=== PATIENT | female | born 1945 | race Caucasian/White ===

== ENCOUNTER 2021-06-28 18:01 | Observation (INO) | payer MEDICARE ==
[~2021-06-28] VITALS: Ht 152.4 cm; Wt 69.4 kg
[2021-06-28 18:01] VITALS: BP 159/86
--- NOTE | 2021-06-28 18:01 | NUR ---
ARRIVAL PATIENT ARRIVED TO [facility] AMBULATORY WITH FAMILY, C/O SORE THROAT AND COUGH FOR THE PAST 7 DAYS, JUST FINISHED A ZPACK THAT WAS GIVEN BUT COUGH CONTINUES, DECIDED TO COME TO THE ED FOR EVAL, VITAL SIGNS TAKEN AND DOCTOR NOTIFIED OF PATIENT'S ARRIVAL.
[2021-06-28] MEDS ORDERED: DUO 0.5-3(2.5) MG/3 ML IH STA (18:28)
[2021-06-28] MEDS ORDERED: SOLU-MEDROL IV STA (18:28)
[2021-06-28] MEDS ORDERED: SOLU-MEDROL ONE (18:42)
[2021-06-28] MEDS ORDERED: DUO 0.5-3(2.5) MG/3 ML IH ONE (18:42)
--- NOTE | 2021-06-28 19:06 | DIREP ---
PROCEDURE:CHEST 1 VIEW COMPARISON:None. INDICATIONS:cough FINDINGS: LUNGS/PLEURA:Increased interstitial markings are seen throughout both lungs. Patchy ground-glass opacities are seen in the left mid lung field and left base. No pleural effusion is seen. VASCULATURE:Normal. Unremarkable pulmonary vasculature. CARDIAC:Normal. No cardiac silhouette abnormality or cardiomegaly. MEDIASTINUM:Normal. No visible mass or adenopathy. BONES:Normal. No fracture or visible bony lesion. OTHER:Negative. CONCLUSION:There are increased interstitial markings throughout both lungs with patchy ground-glass opacities in the left mid lung field and left base. Dictated by: Ousmane Schneider M.D. on 06/28/2021 at 07:03 PM
[2021-06-28 19:11] LABS: BASOPHIL % 0.2 % (0.0-0.2); EOSINOPHIL # 0.4 10^3/uL (0.0-0.2); EOSINOPHIL % 2.6 % (0.0-5.0); LYMPHOCYTES # 4.45 10^3/uL1 (1.0-4.8); LYMPHOCYTES % 31.1 % (24.0-44.0); MEAN CORP HGB 32.2 pg (26-34); MONOCYTES # 0.8 10^3/uL (0.3-0.8); MONOCYTES % 5.6 % (5.0-12.0); NEUTROPHIL # 8.6 10^3/uL (1.8-7.7); PLATELET COUNT 177 10^3/uL (150-400); RED CELL DISTRIBUTION WIDTH 12.4 % (11.5-14.5)
--- NOTE | 2021-06-28 19:15 | ER.PDOC ---
General Chief Complaint: Cough/Congestion Stated Complaint: SOB,COUGH,FEVER TRAVEL OUT OF US: No Time seen by MD: 18:40 Source: patient, family Exam Limitations: no limitations History of Present Illness Initial Comments 76-year-old female comes here with persistent cough for 1 week. Diagnosed with pneumonia as outpatient and started on Z-Ricki. She is got history of pulmonary fibrosis. She is taking multiple medication to suppress her immune system. The patient indicated having some purulent secretions described as thick and yellow. The also with pneumonia as well. No fever and no chills currently. Denies any other complaint. Allergies: Coded Allergies: Cephalosporins (Verified Allergy, Unknown, 06/28/21) acetaminophen (Verified Allergy, Unknown, 06/28/21) ciprofloxacin (Verified Allergy, Unknown, 06/28/21) frovatriptan (Verified Allergy, Unknown, 06/28/21) iodine (Verified Allergy, Unknown, 06/28/21) oxycodone (Verified Allergy, Unknown, 06/28/21) tramadol (Verified Allergy, Unknown, 06/28/21) Past Medical History Medical History: GERD, high cholesterol, hypertension, other (Pulmonary fibrosis) Surgical History: appendectomy, cholecystectomy, hysterectomy, knee, tonsillectomy, other LMP (females 10-50): N/A Not applicalbe Family History Significant Family History: no pertinent family hx Social History Smoking: non-smoker Alcohol Use: none Drug Use: none Reviewed Nursing Reviewed: Vital Signs, Abn. Noted, Nursing Assessment Review of Systems Constitutional: denies no symptoms reported, denies see HPI, denies chills, denies diaphoresis, denies fever, denies malaise, denies weakness, denies other EENTM: denies no symptoms reported, denies see HPI, denies eye pain, denies blurred vision, denies tearing, denies double vision, denies ear pain, denies ear discharge, denies nose pain, denies nose congestion, denies throat pain, denies throat swelling, denies mouth pain, denies mouth swelling, denies other Respiratory: denies no symptoms reported, denies see HPI; cough; denies orthopnea; shortness of breath; denies stridor, denies wheezing, denies other Cardiovascular: denies no symptoms reported, denies see HPI, denies chest pain, denies edema, denies palpitations, denies syncope, denies other Gastrointestinal: denies no symptoms reported, denies see HPI, denies abdominal pain, denies constipation, denies diarrhea, denies nausea, denies vomiting, denies other Genitourinary: denies no symptoms reported, denies see HPI, denies discharge, denies dysuria, denies frequency, denies hematuria, denies pain, denies other Musculoskeletal: denies no symptoms reported, denies see HPI, denies back pain, denies gout, denies joint pain, denies joint swelling, denies muscle pain, denies muscle stiffness, denies neck pain, denies other Skin: denies no symptoms reported, denies see HPI, denies change in color, denies change in hair/nails, denies dryness, denies lesions, denies lumps, denies rash, denies other Psychiatric/Neurological: denies no symptoms reported, denies see HPI, denies anxiety, denies depressed, denies emotional problems, denies headache, denies numbness, denies paresthesia, denies pre-existing deficit, denies seizure, denies tingling, denies tremors, denies weakness, denies other Hematologic/Lymphatic: denies no symptoms reported, denies see HPI, denies anemia, denies blood clots, denies easy bleeding, denies easy bruising, denies swollen glands, denies other Immunological/Allergic: denies no symptoms reported, denies see HPI, denies food allergy, denies grass allergy, denies mold allergy, denies pollen allergy, denies HIV/AIDS, denies transplant All Other Systems: Reviewed and Negative Physical Exam General Appearance: No Apparent Distress, WD/WN EENT: eyes nml inspection, nml ENT inspection Neck: Non-Tender, Full Range of Motion, Supple, Normal Inspection Respiratory: chest non-tender, decreased breath sounds, rhonchi, wheezing CVS: reg rate & rhythm, no murmur, no gallop, pulses nml, nml capillary refill Gastrointestinal: Normal Bowel Sounds, No Organomegaly, No Pulsatile Mass, Non Tender, Soft Back: Normal Inspection, No CVA Tenderness Extremities: Normal Range of Motion, Non-Tender, Normal Inspection, No Pedal Edema 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 as Tested, No Motor/Sensory Deficits, Alert, Normal Mood/Affect, Oriented x 3 Skin: Normal Color, Warm/Dry Lymphatic: No Adenopathy Results/Orders Results/Orders Orders - JEFFERY ANN MD Cbc With Auto Diff (06/28/21 18:28) Comprehensive Metabolic Panel (06/28/21 18:28) Probnp B-Type Lumber Sorter (06/28/21 18:28) Xr Chest 1v (06/28/21 18:28) Methylprednisolone Sod Succ (Solu-Medrol (06/28/21 18:28) Ipratropium/Albuterol Sulfate (Duo 0.5-3 (06/28/21 18:28) Methylprednisolone Sod Succ (Solu-Medrol (06/28/21 18:42) Ipratropium/Albuterol Sulfate (Duo 0.5-3 (06/28/21 18:42) Ct Chest Wo Iv Contrast (06/28/21 19:15) Vital Signs Date Time Temp Pulse Resp B/P (MAP) Pulse Ox O2 Delivery O2 Flow Rate FiO2 06/28/21 18:01 98.4 94 20 06/28/21 18:01 98.4 94 20 93 06/28/21 18:01 98.4 94 20 159/86 (110) 93 Room Air* 0 21 Administered Medications Medications (Trade) Dose Ordered Sig/Kelly Route PRN Reason Start Time Stop Time Status Last Admin Dose Admin Albuterol/ Ipratropium (Duo 0.5-3(2.5) Mg/3 ml) 3 ml STAT STAT IH 06/28/21 18:28 06/28/21 18:38 DC 06/28/21 18:48 3 ML Methylprednisolone Sodium Succinate (Solu-Medrol) 125 mg STAT STAT IV 06/28/21 18:28 06/28/21 18:38 DC 06/28/21 18:48 125 MG Laboratory Tests Test 06/28/21 19:00 White Blood Count 14.3 10^3/uL (4.5-11.0) H Red Blood Count 4.41 10^6/uL (4.00-5.20) Hemoglobin 14.2 g/dL (12.0-15.0) Hematocrit 40.6 % (36.0-46.0) Mean Corpuscular Volume 92.1 fL (78-100) Mean Corpuscular Hemoglobin 32.2 pg (26-34) Mean Corpuscular Hemoglobin Concent 35.0 g/dL (33-36.5) Red Cell Distribution Width 12.4 % (11.5-14.5) Platelet Count 177 10^3/uL (150-400) Mean Platelet Volume 10.3 fL (7.8-11.0) Neutrophils (%) (Auto) 60.0 % (41.0-85.0) Lymphocytes (%) (Auto) 31.1 % (24.0-44.0) Monocytes (%) (Auto) 5.6 % (5.0-12.0) Neutrophils # (Auto) 8.6 10^3/uL (1.8-7.7) H Lymphocytes # (Auto) 4.45 10^3/uL1 (1.0-4.8) Monocytes # (Auto) 0.8 10^3/uL (0.3-0.8) Absolute Immature Granulocyte (auto 0.07 10^3 u/L (0-2) Absolute Eosinophils (auto) 0.4 10^3/uL (0.0-0.2) H Immature Granulocytes % 0.50 % (0.00-0.50) Eosinophils % 2.6 % (0.0-5.0) Basophils % 0.2 % (0.0-0.2) Basophils # 0.0 10^3/uL (0.0-0.1) Sodium Level 136 mmol/L (132-145) Potassium Level 3.3 mmol/L (3.6-5.2) L Chloride Level 102.0 mmol/L (96-109) Carbon Dioxide Level 26.0 mmol/L (20.0-32) Anion Gap 11.3 Blood Urea Nitrogen 8 mg/dL (7-18) Creatinine 0.90 mg/dL (0.59-1.40) Estimated GFR () 74.1 (>/=60) Est GFR (CKD-EPI)(Non-Afr [place] Korean) 61.2 (>/=60) BUN/Creatinine Ratio 8.0 Glucose Level 144 mg/dL (70-110) H Calcium Level 9.1 mg/dL (8.4-10.5) Total Bilirubin 0.5 mg/dL (0.2-1.0) Aspartate Amino Transferase (AST) 37 U/L (0-35) H Alanine Aminotransferase (ALT) 35 U/L (12-78) Alkaline Phosphatase 90 U/L (50-136) Pro-B-Type Natriuretic Peptide 426 pg/mL (0-125) H Total Protein 6.8 g/dL (6.4-8.2) Albumin 3.7 g/dL (3.4-5.0) Globulin 3.1 Albumin/Globulin Ratio 1.193 Progress Progress Patient came here with shortness of breath and fever and cough. The chest x-ray and CT of the chest shows bilateral pneumonia. Obviously not responding to p.o. antibiotics. Patient will need to be admitted for IV antibiotics. EKG/XRAY/CT/US XRAY Comments: Chest x-ray shows bilateral pneumonia CT Comments: CT of the chest shows bilateral pneumonia ER DEPART Departure Time of Disposition: 21:10 Disposition: 09 ADMITTED INPATIENT Impression: Primary Impression: Dyspnea Additional Impressions: Pneumonia Bronchiectasis Condition: Stable Referrals: PCP,UNKNOWN (PCP) PRIMARY CARE PROVIDER Duration or Time Spent with Pa: 40 minutes Problem Qualifiers JEFFERY ANN MD June 28, 2021 19:15
--- NOTE | 2021-06-28 19:48 | DIREP ---
PROCEDURE:CT CHEST W/O COMPARISON:None. INDICATIONS:sob, persistent pna TECHNIQUE:Helical sections through the chest were performed from the lung apices through the diaphragms without IV contrast. Sagittal and coronal reconstructions are obtained from source images. FINDINGS: LUNGS:There is peripherally predominant reticular interstitial pattern of opacity throughout the lungs few scattered pulmonary blebs are seen. Borderline bronchiectasis at the lung bases. More confluent regions of ground-glass opacification is seen with right greater than left upper lobe. Patchy opacification within the superior segment of the left lower lobe. Scattered 2 and 3 mm pulmonary nodules. More dominant right upper lobe pulmonary nodule measuring 6 mm on image 23 series 2. PLEURA:No pleural effusion. CARDIAC:Heart is normal in size. No pericardial effusion. Coronary artery calcification. MEDIASTINUM:Thyroid gland is normal. Likely reactive mediastinal and hilar lymphadenopathy. Preserved central fatty hilum is seen with enlarged lymph nodes. Small hiatal hernia. AORTA:Calcification of thoracic aorta. No aneurysmal dilation. CHEST WALL:No suspicious chest wall lesions. No adenopathy by size criteria. LIMITED ABDOMEN:Calcification of the abdominal aorta. Cholecystectomy change. No acute upper abdominal pathology. BONES:Degenerative change of the spine. OTHER:Negative. CONCLUSION: Peripherally predominant reticular interstitial pattern of opacity may be on the basis of early fibrotic or interstitial lung disease change. Borderline bronchiectasis is noted at the lung bases. Patchy opacity within the superior segment of the left lower lobe may be on the basis of atelectasis or developing consolidation. Ground-glass opacification within the left greater than right upper lobe may be on the basis of an atypical infectious or inflammatory process or edema. 6 mm right upper lobe pulmonary nodule. Recommend follow-up low-dose noncontrast chest CT in 1 year. Additional findings as above. Dictated by: Carlos Castillo MD on 06/28/2021 at 07:43 PM
[2021-06-28] MEDS ORDERED: LOVENOX SQ SCH (22:00)
[2021-06-28 22:36] VITALS: BP 144/66
--- NOTE | 2021-06-28 22:44 | PRM.CONS ---
Subjective Symptoms, Observation: 76-year-old female with history of pulmonary fibrosis, HTN, HLD, and GERD presented to the ED with worsening cough, fever, and chills. She states that she was diagnosed with pneumonia a week ago and was prescribed a Z-Ricki (has completed it); however she is not getting any better and is becoming more short of breath and cough now productive of abrams/yellow sputum. She is immunosuppressed. Vitals stable in the ED. Breathing 93% on room air. WBC 14.3, potassium 3.3, glucose 144, AST 37, BNP 426. CXR: Increased interstitial markings throughout both lungs with patchy adonay undglass opacities in left mid lung field and left base. CT chest: Groundglass opacification within the left upper lobe, patchy opacity in superior segment of left lower lobe, peripherally predominant reticular interstitial pattern of opacity, borderline bronchiectasis bilateral lung bases, 6 mm right upper lobe pulmonary nodule with recommended follow-up low-dose chest CT in 1 year. She received 1 DuoNeb and Solu-Medrol 125 mg IV x1 in ED. Patient has extensive list of allergies including cephalosporins and ciprofloxacin, ED doctor did not feel comfortable giving antibiotic while in ED. Patient admitted for community-acquired pneumonia in immunocompromised host after failing outpatient therapy with p.o. azithromycin. Objective Exam,Results,Procedures Laboratory Tests Test 06/28/21 19:00 White Blood Count 14.3 10^3/uL Red Blood Count 4.41 10^6/uL Hemoglobin 14.2 g/dL Hematocrit 40.6 % Mean Corpuscular Volume 92.1 fL Mean Corpuscular Hemoglobin 32.2 pg Mean Corpuscular Hemoglobin Concent 35.0 g/dL Red Cell Distribution Width 12.4 % Platelet Count 177 10^3/uL Mean Platelet Volume 10.3 fL Neutrophils (%) (Auto) 60.0 % Lymphocytes (%) (Auto) 31.1 % Monocytes (%) (Auto) 5.6 % Neutrophils # (Auto) 8.6 10^3/uL Lymphocytes # (Auto) 4.45 10^3/uL1 Monocytes # (Auto) 0.8 10^3/uL Absolute Immature Granulocyte (auto 0.07 10^3 u/L Absolute Eosinophils (auto) 0.4 10^3/uL Immature Granulocytes % 0.50 % Eosinophils % 2.6 % Basophils % 0.2 % Basophils # 0.0 10^3/uL Sodium Level 136 mmol/L Potassium Level 3.3 mmol/L Chloride Level 102.0 mmol/L Carbon Dioxide Level 26.0 mmol/L Anion Gap 11.3 Blood Urea Nitrogen 8 mg/dL Creatinine 0.90 mg/dL Estimated GFR () 74.1 Est GFR (CKD-EPI)(Non-Afr Guyanese) 61.2 BUN/Creatinine Ratio 8.0 Glucose Level 144 mg/dL Calcium Level 9.1 mg/dL Total Bilirubin 0.5 mg/dL Aspartate Amino Transf (AST/SGOT) 37 U/L Alanine Aminotransferase (ALT/SGPT) 35 U/L Alkaline Phosphatase 90 U/L Pro-B-Type Natriuretic Peptide 426 pg/mL Total Protein 6.8 g/dL Albumin 3.7 g/dL Globulin 3.1 Albumin/Globulin Ratio 1.[address] chest w/o contrast: Peripherally predominant reticular interstitial pattern of opacity may be on the basis of early fibrotic or interstitial lung disease change. Borderline bronchiectasis is noted at the lung bases. Patchy opacity within the superior segment of the left lower lobe may be on the basis of atelectasis or developing consolidation. Ground-glass opacification within the left greater than right upper lobe may be on the basis of an atypical infectious or inflammatory process or edema. 6 mm right upper lobe pulmonary nodule. Recommend follow-up low-dose noncontrast chest CT in 1 year. CXR: There are increased interstitial markings throughout both lungs with patchy ground-glass opacities in the left mid lung field and left base. Assessment & Plan Problems/DX: (1) Sepsis (2) Pneumonia (3) Dyspnea (4) Pulmonary fibrosis (5) Bronchiectasis (6) Hypokalemia Provider Note: 76-year-old female with history of pulmonary fibrosis presenting to the ED with 1 week history of worsening cough, shortness of breath, fever, and chills. Diagnosed with CAP 1 week ago and completed a Z-Ircki without improvement in symptoms. also diagnosed with pneumonia but he is improving. Patient on immunosuppressive medications due to pulmonary fibrosis. 1. Sepsis HR 87-103, WBC 14.3, source of infection: Pneumonia. Lactic acid not drawn in ED. Blood cultures not drawn in ED. IV fluids Treating pneumonia as below Repeat labs in a.m. 2. Pneumonia Patient failed outpatient p.o. azithromycin. See imaging results above. Has skin sloughing allergy to cephalosporins and severe rash to f luoroquinolones. Patient denies allergy to penicillins. ED physician was unsure which antibiotic to try so she did not receive any antibiotics while in the ED. Received Solu-Medrol 125 mg IV x1 in ED. Started Zosyn and doxycycline Supplemental O2 as needed, wean as tolerated Repeat labs in a.m. 3. Dyspnea Chronic but acutely worse with concurrent pneumonia. Shabnam scheduled Treating pneumonia as above 4. Pulmonary fibrosis Patient on immunosuppressive medications. Symptoms worse with concurrent pneumonia. Treating pneumonia as above Holding immunosuppressive medications at this time 5. Bronchiectasis Chronic but acutely worse with concurrent pneumonia. Treating pneumonia as above 6. Hypokalemia Mild, K3.3. P.o. replacement Repeat labs in a.m. VTE VTE Risk Score VTE Risk: Score 0-1 = Low Risk (Aggressive mobilization; early ambulation; no VTE prophylaxis required) Score 2: Moderate Risk (Intermittent/Pneumatic Compression Device OR Lovenox/Heparin/Coumadin) Score 3-4: High Risk (Intermittent/Pneumatic Compression Device AND Lovenox/Heparin/Coumadin) Score > or =5: Highest Risk (Intermittent/Pneumatic Compression Device AND Lovenox/Heparin/Coumadin) DAVIDSON HUDDLESTON MD June 28, 2021 22:44
--- NOTE | 2021-06-29 00:05 | NUR ---
MED/SURG REPORT GIVEN TO JOSH KING. TRANSPORTED TO MED-SURG VIA WHEELCHAIR BY RILEY KEBEDE. ALERT AND ORIENTED X3. O2 SAT 94% ON ROOM AIR.
[2021-06-29] MEDS: LACTATED RINGERS 1,000 ML IV SCH ×2 (00:26→09:30)
[2021-06-29 00:44] VITALS: BP 146/90
[2021-06-29] MEDS ORDERED: ZOSYN 3.375 GM 3.375 GM in NS 100ML 100 ML IV SCH ×2 (01:30→10:00)
[2021-06-29] MEDS ORDERED: BENADRYL IV PRN (02:00)
[2021-06-29] MEDS: VIBRAMYCIN PO SCH ×2 (02:11→09:30)
[2021-06-29] MEDS ORDERED: NS 100ML 100 ML IV ONE (02:14)
[2021-06-29] MEDS: DUO 0.5-3(2.5) MG/3 ML IH SCH ×3 (02:19→08:54)
[2021-06-29] MEDS ORDERED: KCL 20MEQ/100ML 100 ML IV SCH (03:00)
[2021-06-29] MEDS ORDERED: NS 250ML 250 ML ONE (04:03)
[2021-06-29] MEDS ORDERED: KLOR-CON 10 PO ONE (04:24)
[2021-06-29] MEDS ORDERED: KLOR-CON 10 PO SCH (04:30)
[2021-06-29 05:06] LABS: BASOPHIL % 0.1 % (0.0-0.2); LYMPHOCYTES # 1.37 10^3/uL1 (1.0-4.8); LYMPHOCYTES % 9.8 % (24.0-44.0); MEAN CORP HGB 32.1 pg (26-34); MONOCYTES # 0.1 10^3/uL (0.3-0.8); MONOCYTES % 0.6 % (5.0-12.0); NEUTROPHIL # 12.5 10^3/uL (1.8-7.7); NEUTROPHILS % 89.5 % (41.0-85.0); PLATELET COUNT 184 10^3/uL (150-400); RED CELL DISTRIBUTION WIDTH 12.5 % (11.5-14.5)
[2021-06-29 05:15] VITALS: BP 127/75
[2021-06-29 05:17] LABS: CARBON DIOXIDE 21.6 mmol/L (20.0-32)
[2021-06-29 07:16] VITALS: BP 128/67
--- NOTE | 2021-06-29 09:23 | NUR ---
DISCHARGE PLAN - BACK TO [place] [email or web address] TO VISIT WITH PATIENT ABOUT DISCHARGE PLANS/NEEDS/GOALS. PATIENT REPORTS THAT SHE LIVES IN [place] WITH HER SPOUSE AND IND WITH ALL ADL AND SHE CAME TO [place] TO VISIT WITH HER GRANDDAUGHTER AND GRANDKIDS. PATIENT STATES HER AND HER SPOUSE ARE UNABLE TO DRIVE THAT FAR AND SO THEY TOOK A TRAIN TO [place] AND SHE RENTED A CAR. HER WAS UNABLE TO COME BECAUSE HE CAME DOWN WITH PNEUMONIA AND SHE WAS SUPPOSE TO BE GOING BACK HOME NOW. REPORTS HER GRANDDAUGHTER IS MAKING ALL OF THE ARRANGEMENTS TO CHANGE WHEN SHE RETURNS HER RENTAL CAR AND TRAIN BACK TO [place]. PATIENT REPORTS ONLY DME IS HER NEBULIZER AND SHE BROUGHT IT WITH HER. DENIES ANY NEED FOR ANY OTHER SERVICES OR MEDICAL EQUIPMENT. PATIENT CURRENTLY ON ROOM AIR. PATIENT REPORTS THAT SHE SEE'S DR OMKAR HSU IN [place] FOR PCP. PATIENT PLANS TO DISCHARGE BACK TO HER GRANDDAUGHTER'S HOUSE UNTIL HER TRANSPORTATION HAS BEEN SCHEDULED TO RETURN TO [place] WITH HER SPOUSE. Addendum: 06/29/21 at 1113 by Rain Arevalo RN,Case Managemen RN PER ID MEETING - DR MONAHAN REQUEST CM FAX PATIENT'S CLINICALS TO PATIENT'S PCP IN [place]. CM CONTACTED PATIENT'S PCP DR OMKAR HSU AND CONFIRMED PATIENT SEE'S DR HSU. PATIENT'S NEXT APPT WITH DR HSU IS ALREADY SCHEDULED FOR July@9AM. CM UPDATED PATIENT'S FOLLOW UP APPT IN PATIENT'S VISIT REPORT AND NOTIFIED TIFFANY DAVILA RN - CHARGE NURSE OF APPT TIME. CM FAXED COMPLETE CLINICAL RECORDS DR DR OMKAR HSU@[phone]. FAX CONFIRMATION CONFIRMED COMPLETE.
[2021-06-29] MEDS ORDERED: AMOX1TAB60 PO (10:46)
[2021-06-29] MEDS ORDERED: DOXY100T PO (10:46)
--- NOTE | 2021-06-29 10:56 | PRM.DC ---
Discharge Summary Date of Discharge: June 29, 2021 Time of Request to Discharge: 10:45 Hospital Course Please see same day H and P for observation patients. Patient History: Patient reports no known family medical history. Scheduled Amoxicillin/Potassium Clav (Augmentin 500-125 Tablet), 1 TAB PO Q8HR Doxycycline Hyclate (Doxycycline Hyclate), 100 MG PO BID Sepsis Evaluation @ Discharge 06/29/21 07:38 Course Sepsis Screening Results: Posi: NEGATIVE Sepsis Qualifier/Stage: NO DEFINITE RISK Duration or Total Time Spent w: 40 minutes Vitals & review Data Vital Sign - Last 24 Hours 06/28/21 06/28/21 06/28/21 06/28/21 18:01 18:01 18:01 22:36 Temp 98.4 98.4 98.4 98.4 Pulse 94 94 94 87 Resp 20 20 20 20 B/P (MAP) 159/86 (110) 144/66 (92) Pulse Ox 93 93 93 O2 Delivery Room Air* Room Air* O2 Flow Rate 0 0 FiO2 06/29/21 06/29/21 06/29/21 06/29/21 00:42 00:44 02:20 02:21 Temp 98.2 Pulse 103 98 98 Resp 20 20 20 B/P (MAP) 146/90 (108) Pulse Ox 94 97 97 O2 Delivery Room Air Room Air* Room Air* Room Air* O2 Flow Rate 0.00 0 0 0 FiO2 06/29/21 06/29/21 06/29/21 06/29/21 05:09 05:10 05:15 07:16 Temp 98.5 98.3 Pulse 97 9 79 104 Resp 20 20 18 18 B/P (MAP) 127/75 (92) 128/67 (87) Pulse Ox 95 95 94 92 O2 Delivery Room Air* Room Air* Room Air* Room Air* O2 Flow Rate 0 0 0 0 FiO2 06/29/21 06/29/21 06/29/21 06/29/21 08:56 08:57 08:58 10:20 Pulse 112 108 Resp 20 20 20 Pulse Ox 92 92 O2 Delivery Room Air* Room Air* Room Air O2 Flow Rate 0 0 FiO2 21 Intake and Output 06/29/21 07:00 Intake Total 100 ml Output Total 350 ml Balance -250 ml Laboratory Tests Test 06/28/21 19:00 06/28/21 22:50 06/29/21 04:08 White Blood Count 14.3 10^3/uL 13.9 10^3/uL Red Blood Count 4.41 10^6/uL 4.27 10^6/uL Hemoglobin 14.2 g/dL 13.7 g/dL Hematocrit 40.6 % 39.3 % Mean Corpuscular Volume 92.1 fL 92.0 fL Mean Corpuscular Hemoglobin 32.2 pg 32.1 pg Mean Corpuscular Hemoglobin Concent 35.0 g/dL 34.9 g/dL Red Cell Distribution Width 12.4 % 12.5 % Platelet Count 177 10^3/uL 184 10^3/uL Mean Platelet Volume 10.3 fL 10.5 fL Neutrophils (%) (Auto) 60.0 % 89.5 % Lymphocytes (%) (Auto) 31.1 % 9.8 % Monocytes (%) (Auto) 5.6 % 0.6 % Neutrophils # (Auto) 8.6 10^3/uL 12.5 10^3/uL Lymphocytes # (Auto) 4.45 10^3/uL1 1.37 10^3/uL1 Monocytes # (Auto) 0.8 10^3/uL 0.1 10^3/uL Absolute Immature Granulocyte (auto 0.07 10^3 u/L 0.12 10^3 u/L Absolute Eosinophils (auto) 0.4 10^3/uL 0.0 10^3/uL Immature Granulocytes % 0.50 % 0.90 % Eosinophils % 2.6 % 0.0 % Basophils % 0.2 % 0.1 % Basophils # 0.0 10^3/uL 0.0 10^3/uL Sodium Level 136 mmol/L 137 mmol/L Potassium Level 3.3 mmol/L 3.5 mmol/L Chloride Level 102.0 mmol/L 100.0 mmol/L Carbon Dioxide Level 26.0 mmol/L 21.6 mmol/L Anion Gap 11.3 18.9 Blood Urea Nitrogen 8 mg/dL 8 mg/dL Creatinine 0.90 mg/dL 0.88 mg/dL Estimated GFR () 74.1 76.0 Est GFR (CKD-EPI)(Non-Afr [place]raltarian) 61.2 62.8 BUN/Creatinine Ratio 8.0 9.0 Glucose Level 144 mg/dL 267 mg/dL Calcium Level 9.1 mg/dL 8.6 mg/dL Total Bilirubin 0.5 mg/dL 0.6 mg/dL Aspartate Amino Transf (AST/SGOT) 37 U/L 31 U/L Alanine Aminotransferase (ALT/SGPT) 35 U/L 29 U/L Alkaline Phosphatase 90 U/L 83 U/L Pro-B-Type Natriuretic Peptide 426 pg/mL Total Protein 6.8 g/dL 6.5 g/dL Albumin 3.7 g/dL 3.5 g/dL Globulin 3.1 3.0 Albumin/Globulin Ratio 1.193 1.166 SARS-CoV-2 Antigen (Rapid) NEGATIVE Current Medications Medications (Trade) Dose Ordered Sig/Kelly PRN Reason Start Time Stop Time Status Last Admin Albuterol/ Ipratropium (Duo 0.5-3(2.5) Mg/3 ml) 3 ml RTQ4 06/29/21 01:00 07/29/21 00:59 06/29/21 08:54 Diphenhydramine HCl (Benadryl) 25 mg Q6H PRN ALLERGIC REACTION 06/29/21 02:00 07/29/21 01:59 Doxycycline Hyclate (Vibramycin) 100 mg BID 06/29/21 01:30 07/29/21 01:29 06/29/21 09:30 Enoxaparin Sodium (Lovenox) 40 mg Q24HRS 06/28/21 22:00 07/28/21 21:59 06/29/21 00:26 Piperacillin Sod/ Tazobactam Sod 3.375 gm/Sodium Chloride 100 ml @ 100 mls/hr Q8H 06/29/21 10:00 07/29/21 09:59 06/29/21 10:00 LEVEL 1 SEPSIS INFECTION CRITE: Cough/Shortness of Breath, Flu-Pneumonia LEVEL 2-SIRS (LIST ALL THAT AP: [id number] Cardiovascular Evidence: Not Assessed or None Hematologic Evidence: None/Not assessed Hepatic Evidence: None/Not assessed Metabolic Evidence: None/Not assessed Neurological Evidence: None/Not assessed Respiratory Evidence: None/Not assessed Renal Evidence: None/Not assessed O2 Sat by Pulse Oximetry: 92 Oxygen Flow Rate: 0.00 TANIYA MONAHAN MD June 29, 2021 10:56
[2021-06-29 11:01] VITALS: BP 128/67
[2021-06-29 11:05] VITALS: BP 155/77
--- NOTE | 2021-06-29 11:05 | PCM.HP ---
History of Present Illness Reason for Visit: (1) Pneumonia ICD Code: J18.9 - Pneumonia, unspecified organism SNOMED: 337663007 Past Medical History PMH-Pulmonary: (1) Pulmonary fibrosis Status: Chronic ICD Code: J84.10 - Pulmonary fibrosis, unspecified SNOMED: 55416321 PMH-Rheumatologic: (1) Rheumatoid arthritis ICD Code: M06.9 - Rheumatoid arthritis, unspecified SNOMED: 90072154 PMH-Endocrine: (1) Diabetes ICD Code: E11.9 - Type 2 diabetes mellitus without complications SNOMED: 88856562 (2) Hypertension ICD Code: I10 - Essential (primary) hypertension SNOMED: 16774112 Past Family History: (1) No pertinent family history ICD Code: Z78.9 - Other specified health status SNOMED: 074481196 Past Social History Past Social Hx:Smoke: (1) No pertinent family history ICD Code: Z78.9 - Other specified health status SNOMED: 200402806 (2) No pertinent past surgical history ICD Code: Z78.9 - Other specified health status SNOMED: 585958057 Review of Systems Constitutional: Weakness; No: Fever, Chills, Sweats, Malaise, Other Eyes: No: Pain, Vision change, Conjunctivae inflammation, Eyelid inflammation, Other, Redness ENT: No: Ear pain, Ear discharge, Nose pain, Nose discharge, Nose congestion, Mouth pain, Mouth swelling, Throat pain, Throat swelling, Other Respiratory: Cough, Shortness of breath, Sputum; No: Dry, SOB with excertion, Wheezing, Hemoptysis, Pleuritic Pain, Wheezing, Other Cardiovascular: No: Chest Pain, Palpitations, Orthopnea, Paroxysmal Noc. Dyspnea, Edema, Lt Headedness, Other Gastrointestinal: No: Nausea, Vomiting, Abdominal Pain, Diarrhea, Constipation, Melena, Hematochezia, Other Genitourinary: No Dysuria, No Frequency, No Incontinence, No Hematuria, No Retention, No Other Musculoskeletal: No: other, neck pain, shoulder pain, arm pain, back pain, hand pain, leg pain, foot pain Skin: No: Rash, Lesions, Jaundice, Bruising, Other Neurological: No: Weakness, Numbness, Incoordination, Change in speech, Confusion, Seizures, Other Allergies: Coded Allergies: acetaminophen (Verified Allergy, Unknown, SOB, CHEST TIGHTNESS, 06/29/21) ciprofloxacin (Verified Allergy, Unknown, SUNBURN TYPE RASH ALL OVER BODY, 06/29/21) frovatriptan (Verified Allergy, Unknown, PALPITATIONS, 06/29/21) iodine (Verified Allergy, Unknown, SOB, CHEST TIGHTNESS, 06/29/21) ONLY INJECTED IODINE. SKIN PREP IODINE OKAY. oxycodone (Verified Allergy, Unknown, SOB, CHEST TIGHTNESS, 06/29/21) tramadol (Verified Allergy, Unknown, SOB, CHEST TIGHTNESS, 06/29/21) Cephalosporins (Verified Adverse Reaction, Severe, RASH, SLOUGHING SKIN, 06/29/21) Scheduled Amoxicillin/Potassium Clav (Augmentin 500-125 Tablet), 1 TAB PO Q8HR Doxycycline Hyclate (Doxycycline Hyclate), 100 MG PO BID VTE VTE Risk Total Score: 2 VTE Risk Score VTE Risk: Score 0-1 = Low Risk (Aggressive mobilization; early ambulation; no VTE prophylaxis required) Score 2: Moderate Risk (Intermittent/Pneumatic Compression Device OR Lovenox/Heparin/Coumadin) Score 3-4: High Risk (Intermittent/Pneumatic Compression Device AND Lovenox/Heparin/Coumadin) Score > or =5: Highest Risk (Intermittent/Pneumatic Compression Device AND Lovenox/Heparin/Coumadin) VTE VTE Present on Admission: No Currently receiving anticoagul: No VTE Risk Total Score: 2 Exam Vital Signs Vital Signs Date Time Temp Pulse Resp B/P (MAP) Pulse Ox O2 Delivery O2 Flow Rate FiO2 06/29/21 10:20 Room Air 06/29/21 08:58 20 92 06/29/21 08:57 108 0 21 06/29/21 07:16 98.3 128/67 (87) General Appearance: Alert, Oriented X3, Cooperative, No acute distress HEENT: Atraumatic, PERRLA, EOMI, Mucous membr. moist/pink Respiratory: Other (bilateral crackles in lower half of both lungs) Cardiovascular: Regular rate, Normal S1, Normal S2, No murmurs Abdominal: Normal bowel sounds, Soft, No tenderness, No hepatospenomegaly Extremities: No clubbing, No cyanosis, No edema, Normal pulses Skin: No breakdown, No lesions, Rash, Breakdown Neuro: Normal gait, Normal speech, Strength at 5/5 X4 ext, Normal tone, Sensation intact, Cranial nerves 3-12 NL Psych/Mental Status: Mental status NL, Mood NL Assessment/Plan Assessment/Plan Assessment/Plan 76-year-old female with history of pulmonary fibrosis,RA, HTN, HLD, and GERD presented to the ED with worsening cough, fever, and chills for 3 days before presentation. Pt. states that she was diagnosed with pneumonia a week ago and was prescribed a Z-Ricki (has completed it) fro 06/23/21-06/26-, ; however she was not getting any better and is becoming more short of breath and cough now productive of abrams/yellow sputum. She is immunosuppressed. Pt was breathing 93% on room air, WBC 14.3, CXR showed Increased interstitial markings throughout both lungs with patchy groundglass opacities in left mid lung field and left base and CT chest showed groundglass opacification within the left upper lobe, patchy opacity in superior segment of left lower lobe, peripherally predominant reticular interstitial pattern of opacity, borderline bronchiectasis bilateral lung bases, 6 mm right upper lobe pulmonary nodule with recommended follow-up low-dose chest CT in 1 year. She received 1 DuoNeb and Solu-Medrol 125 mg IV x1 in ED. Patient has extensive list of allergies including cephalosporins and ciprofloxacin, ED doctor did not feel comfortable giving antibiotic while in ED and patient was admitted for community-acquired pneumonia in immunocompromised host after failing outpatient therapy with p.o. azithromycin. 1. Sepsis HR 87-103, WBC 14.3, source of infection: Pneumonia. WBC improved to 13.9 and patient feels well. Lactic acid not drawn in ED. Blood cultures not drawn in ED. Treated pneumonia as below 2. Pneumonia Patient failed outpatient p.o. azithromycin. See imaging results above. Has skin sloughing allergy to cephalosporins and severe rash to fluoroquinolones. Patient denies allergy to penicillins. ED physician was unsure which antibiotic to try so she did not receive any antibiotics while in the ED. Received Solu-Medrol 125 mg IV x1 in ED. Started Zosyn and doxycycline as patient felt well. 3. Dyspnea Chronic but acutely worse with concurrent pneumonia. DuoNebs scheduled 4. Pulmonary fibrosis Patient on immunosuppressive medications. Symptoms worse with concurrent pneumonia. 5. Bronchiectasis Chronic but acutely worse with concurrent pneumonia. Treating pneumonia as above 6. Hypokalemia Mild, K3.3. P.o. replacement Repeat labs in a.m. Patient History: Patient reports no known family medical history. Problem Qualifiers (1) Pneumonia: Pneumonia type: due to Pseudomonas TANIYA MONAHAN MD June 29, 2021 11:05
[2021-06-29] MEDS ORDERED: IPRA30SP NS (11:15)
[2021-06-29] MEDS ORDERED: DUO 0.5-3(2.5) MG/3 ML IH ONE (11:31)
--- NOTE | 2021-06-29 11:37 | NUR ---
TX DONE PRIOR TO PT BEING DISCHARGED, NSG IN AGREEMENT Addendum: 06/29/21 at 1137 by EDDY BROWN HISTOLOGY TECHNOLOGIST RT Amended: Links added.
--- NOTE | 2021-06-29 11:47 | NUR ---
DISCHARGE IV DISCONTINUED, TOLERATED WELL, CATHETER IN TACT. PT PROVIDED WITH DISCHARGE PACKET REGARDING APPOINTMENTS TO BE MADE AND KEPT, NEW MEDICATIONS TO BE INITIATED, AND REASONS TO RETURN TO ED. PT IN ROOM AWAITING DAUGHTER FOR PICKUP. WILL RELINQUISH CARE AT THAT TIME.
== END 2021-06-29 11:15 | disposition home or self-care (01) ==
LOC: ER 18:01 → MS 21:12 → INTOOBSV 21:12 → UNDOADMOB 21:12 → UNDOADMIN 21:12 → MS 21:12
PROVIDERS: ADMIT Family Medicine; ATTEND Family Medicine
DX: A41.9 Sepsis, unspecified organism (principal); Z20.822 Contact with and (suspected) exposure to COVID-19; J18.9 Pneumonia, unspecified organism; J84.10 Pulmonary fibrosis, unspecified; J47.9 Bronchiectasis, uncomplicated; E87.6 Hypokalemia; K21.9 Gastro-esophageal reflux disease without esophagitis; E78.00 Pure hypercholesterolemia, unspecified; E11.9 Type 2 diabetes mellitus without complications; I10 Essential (primary) hypertension; E78.5 Hyperlipidemia, unspecified; M06.9 Rheumatoid arthritis, unspecified; Z90.710 Acquired absence of both cervix and uterus; Z87.01 Personal history of pneumonia (recurrent); Z88.1 Allergy status to other antibiotic agents
CPT/HCPCS: 36415 ×2; 71045; 71250; 80053 ×2; 83880; 85025 ×2; 87426; 94640; 96365; 96366 ×2; 96372; 96375; 99285; G0378 ×3; J1650; J2543; J2930; J3490; J7050; J7120 ×2; J3480